=== PATIENT | female | born 1980 | race Caucasian/White ===

== ENCOUNTER → 2024-01-20 12:44 | Outpatient (REF) | payer OTHER, SELFPAY | LOC: WDC 12:44 | PROVIDERS: ATTENDING PHYSICIAN Obstetrics & Gynecology Gynecology | DX: Z12.31 Encounter for screening mammogram for malignant neoplasm of breast (principal) | CPT/HCPCS: 77063; 77067 ==

== ENCOUNTER → 2024-01-24 07:35 | Outpatient (REF) | payer OTHER, SELFPAY | LOC: EMG 07:35 | PROVIDERS: ATTENDING PHYSICIAN Psychiatry & Neurology Neurology; FAMILY PHYSICIAN Family Medicine | DX: M54.12 Radiculopathy, cervical region (principal); R20.0 Anesthesia of skin | CPT/HCPCS: 95886; 95909 ==

== ENCOUNTER 2024-03-16 13:01 | Emergency (ER) | payer OTHER, SELFPAY ==
[2024-03-16 13:09] VITALS: BP 154/90
[2024-03-16 13:45] VITALS: BMI 25.7
--- NOTE | 2024-03-16 15:35 | ED.GENMED ---
History of Present Illness
General
Chief Complaint: Head Injury
Source: patient
Exam Limitations: none
Time Seen by Provider: 03/16/24 13:59
Nursing documentation reviewed up to this point in time: agreed with
Travel History
Have you had any contact with someone who has COVID-19?: No
Do you have any symptoms of coronavirus? Fever > 100 degrees, chills, cough, shortness of breath, sore throat, loss of taste or smell, muscle aches, or headache?: No
History of Present Illness
History of Present Illness:
pt is a 43 y/o F with h/o chronic migraines
here with headache and neck soreness after falling off horse 2 days ago onto her side, while wearing helmet. she landed on left shoulder and did strike back ofher head
no loc
has had headache, photophobia, dizziness, brain fog, fatigue since
she has chronic migraines so the headaches are not new but her other symptoms are
she has no weakness/numbness in the extremiteis
she has not taken anything for her headache, but is not concerned about the headache
wants to know if she can ride her horse again
no thinners
Past History
Past History
ED Past Medical History: GERD, Hypercholesterolemia, Psychiatric (Anxiety) and Other (Migraine headache)
ED Past Surgical History: Cholecystectomy (November 2021), (X2) and Tonsilectomy
Social History
Tobacco: Former smoker
Alcohol: Occasional (Hard Cider 2-5 glasses)
Personal:
Living: with family
Employment: Not employed
Family History
Family History: Other (Noncontributory)
Review of Systems
Review of Systems
Allergies reviewed?: Yes
All Other Systems: Not applicable
Phy Exam
Physical Exam
Physical Exam:
GENERAL: Alert , in no apparent distress
HEAD: NCAT
NECK: no midline tenderness, active ROM intact, mild b/l paraspinal muscle tenderness
EYE: pupils equal and reactive, EOMs intact.
ENT: o/p clr, mmm. no hemotympanum
CARDIAC: Regular rate and rhythm, no edema
LUNGS: Clear breath sounds bilaterally, no acute respiratory distress, no wheezes/rales/rhonchi
ABDOMEN: Soft, without focal tenderness, no r/g, no cvat
NEUROLOGICAL: Alert and oriented, no focal neuro deficits, CN intact, 5/5 strength, sensation intact, finger to nose intact
SKIN: Warm and dry,
MUSCULOSKELETAL: No edema, well perfused.
PSYCH: Normal and appropriate interaction.
Course
Orders/Labs/Results
Orders:
Orders
03/16/24 14:13
CT Cervical Spine W/o Iv Contr Urgent
Comment:
Reason For Exam: neck pain after falling off horse
CT Head W/o Iv Contrast Urgent
Comment:
Reason For Exam: fall, intoxictaed
Vital Signs
Initial and Last Documented VS:
Initial Vital Signs
Temp Pulse Resp BP Pulse Ox
99.0 F 73 16 154/90 99
03/16/24 13:09 03/16/24 13:09 03/16/24 13:09 03/16/24 13:09 03/16/24 13:09
Last Documented Vital Signs
Temp Pulse Resp BP Pulse Ox
99.0 F 63 16 128/83 98
03/16/24 13:09 03/16/24 15:54 03/16/24 13:09 03/16/24 15:54 03/16/24 15:54
MDM/Problems Addressed
Differential Diagnosis Includes:
concussion, cervical strain
MDM/Problems Addressed:
43 y/o F with h/o chornic migraines
here with headache, and lgihtheadedness, photophobia, nausea, fatigue, brain fog following falling off a horse 2 days ago
no thinners
neuro itnact
c spine mild vinny with rotation but no midline tendneres
head/neck ct neg
d/c home brain rest
*Critical Care Note
Total Time (30-74mins, 75-104mins- exclusive of procedures): Not Applicable
ED Attending Note
-
Portions of this chart may have been created with voice recognition software.� Occasional wrong word or��sound alike� substitutions may have occurred due to the inherent limitations of voice recognition software.
Discharge Plan
Departure
Patient Disposition: Home (Routine Discharge)
Date of Disposition: 03/16/24
Time of Disposition: 15:45
Patient with high blood pressure during this ER visit?: Yes
Discharge Problem:
Concussion, Cervical muscle strain
Instructions: Concussion, Adult (DC), BLOOD PRESSURE
Prescriptions:
No Action
sertraline 50 MG tablet
25 mg PO DAILY
Vyvanse 40 mg Capsule
40 mg PO DAILY
omeprazole 20 mg Tablet,Delayed Release (Dr/Ec)
20 mg PO DAILY
Probiotic 3 billion cell Tablet,Chewable
1 tab
Referrals:
Prabhu Suarez MD [Family Provider] - Follow up in 2-3 days
Activity Restrictions/Additional Instructions:
You likely have a mild concussion
for this we recommend 24-48 hours of brain rest to help your brain heal and your headache improve. (no phone, tv, computer reading, etc)
also use tylenol every 6 hours, motrin every 8 hours as needed for pain.
for your neck, heat off and on as needed.
after 24-48 hours, you can return to normal activity
you should avoid sports and riding until cleared/symptom free, follow up with your doctor
return to the er for: worsening pain, vomiting, confusion, weakness, numbness/tingling in arms or legs or any concerns.
Interventions
Interventions:
*Risk Screen - Suicide Last Done: 03/16/24 13:44
*General Assessment Last Done: 03/16/24 13:45
*Neglect/Abuse Screening Last Done: 03/16/24 13:44
ED- Fall Risk Assessment Last Done: 03/16/24 13:44
*ED COVID-19 Vaccine History Last Done: 03/16/24 13:09
*Nursing Disposition Last Done: 03/16/24 16:13
ED- Neurological Assessment Last Done: 03/16/24 13:46
ED-Skin Assessment Last Done: 03/16/24 13:47
Discharge Date and Time
Discharge Date/Time: 03/16/24 16:15
Print Language: SWEDISH
[2024-03-16 15:54] VITALS: BP 128/83
== END 2024-03-16 16:15 | disposition home or self-care (01) ==
LOC: EMR 13:01
PROVIDERS: EMERGENCY PHYSICIAN Emergency Medicine; FAMILY PHYSICIAN Family Medicine
DX: S06.0XAA Concussion with loss of consciousness status unknown, initial encounter (principal); S16.1XXA Strain of muscle, fascia and tendon at neck level, initial encounter; V80.010A Animal-rider injured by fall from or being thrown from horse in noncollision accident, initial encounter; Y93.52 Activity, horseback riding; K21.9 Gastro-esophageal reflux disease without esophagitis; E78.00 Pure hypercholesterolemia, unspecified; F41.9 Anxiety disorder, unspecified; Z87.891 Personal history of nicotine dependence; Z90.49 Acquired absence of other specified parts of digestive tract
CPT/HCPCS: 99284; 70450; 72125

== ENCOUNTER → 2024-11-23 08:43 | Outpatient (REF) | payer OTHER, SELFPAY | LOC: RAD 08:43 | PROVIDERS: ATTENDING PHYSICIAN Psychiatry & Neurology Neurology | DX: M54.16 Radiculopathy, lumbar region (principal); N20.0 Calculus of kidney | CPT/HCPCS: 73502; 74018 ==

== ENCOUNTER → 2025-01-25 08:02 | Outpatient (REF) | payer OTHER, SELFPAY | LOC: WDC 08:02 | PROVIDERS: ATTENDING PHYSICIAN Obstetrics & Gynecology Gynecology; FAMILY PHYSICIAN Family Medicine | DX: Z12.31 Encounter for screening mammogram for malignant neoplasm of breast (principal) | CPT/HCPCS: 77063; 77067 ==

== ENCOUNTER 2025-01-29 06:22 | Day surgery (SDC) | payer OTHER, SELFPAY | END 2025-01-29 15:47 | disposition home or self-care (01) | LOC: GI 06:22 | PROVIDERS: ATTENDING PHYSICIAN Internal Medicine Gastroenterology; FAMILY PHYSICIAN Family Medicine | DX: Z12.11 Encounter for screening for malignant neoplasm of colon (principal); K64.0 First degree hemorrhoids | CPT/HCPCS: G0121 ==

== ENCOUNTER → 2025-03-29 09:50 | Outpatient (REF) | payer OTHER, SELFPAY | LOC: HWRAD 09:50 | PROVIDERS: ATTENDING PHYSICIAN Obstetrics & Gynecology Gynecology; FAMILY PHYSICIAN Family Medicine | DX: N92.0 Excessive and frequent menstruation with regular cycle (principal) | CPT/HCPCS: 76830; 76856 ==

== ENCOUNTER → 2025-07-02 11:09 | Outpatient (REF) | payer OTHER, SELFPAY ==
[2025-07-02 11:53] LABS: Hematocrit 30.8 % (37.0-47.0); Hemoglobin 9.1 g/dL (12.0-16.0); Mean Corp Hgb Conc. 29.5 g/dL (33.0-37.0); Mean Corpuscular Volume 72.3 fL (81.0-99.0); Nucleated Red Blood Cells % 0 %; Platelet Count 296 10^3/uL (130-400); Red Cell Dist. Width 21.7 % (11.5-14.5)
== END ==
LOC: OIDL 11:09
PROVIDERS: ATTENDING PHYSICIAN Nurse Practitioner Primary Care
DX: D50.9 Iron deficiency anemia, unspecified (principal); D50.0 Iron deficiency anemia secondary to blood loss (chronic)
CPT/HCPCS: 85025

== ENCOUNTER → 2025-07-12 13:41 | Outpatient (REF) | payer OTHER, SELFPAY ==
[2025-07-12 11:49] LABS: Hematocrit 34.0 % (37.0-47.0); Hemoglobin 10.3 g/dL (12.0-16.0); Mean Corp Hgb Conc. 30.3 g/dL (33.0-37.0); Mean Corpuscular Volume 74.4 fL (81.0-99.0); Platelet Count 402 10^3/uL (130-400); Red Cell Dist. Width 23.0 % (11.5-14.5)
== END ==
LOC: OIDL 13:41
PROVIDERS: ATTENDING PHYSICIAN Nurse Practitioner Primary Care
DX: D50.9 Iron deficiency anemia, unspecified (principal); D50.0 Iron deficiency anemia secondary to blood loss (chronic)
CPT/HCPCS: 85025

== ENCOUNTER 2025-08-01 11:35 | Emergency (ER) | payer OTHER, SELFPAY ==
[2025-08-01] VITALS (7 sets, daily range): BP systolic 105–141; BP diastolic 64–91; BMI 26.8
[2025-08-01 12:12] LABS: Hematocrit 34.2 % (37.0-47.0); Hemoglobin 11.0 g/dL (12.0-16.0); Mean Corp Hgb Conc. 32.2 g/dL (33.0-37.0); Mean Corpuscular Volume 78.3 fL (81.0-99.0); Nucleated Red Blood Cells % 0 %; Platelet Count 276 10^3/uL (130-400); Red Cell Dist. Width 22.5 % (11.5-14.5)
[2025-08-01 12:23] LABS: Urine Character Clear (Clear)
[2025-08-01 12:36] LABS: HCG, Serum Qualitative Screen Negative
[2025-08-01 12:39] LABS: ALT (SGPT) 13 U/L (0-35); AST (SGOT) 19 U/L (14-36); Albumin 4.7 g/dl (3.5-5.0); Alkaline Phosphatase 32 U/L (38-126); Blood Urea Nitrogen 15 mg/dl (7-17); Calcium 9.6 mg/dl (8.4-10.2); Carbon Dioxide 26 mmol/L (22-30); Chloride 104 mmol/L (98-107); Glucose 102 mg/dl (70-99); Lipase 179 U/L (23-300); Potassium 4.0 mmol/L (3.5-5.1); Sodium 138 mmol/L (135-145); Total Protein 7.1 g/dl (6.3-8.2); eGFR > 60.00
[2025-08-01] MEDS: TORADOL 15 MG IV (14:06)
--- NOTE | 2025-08-01 14:08 | ED.GENMED ---
History of Present Illness
General
Chief Complaint: Abdominal Pain
Time Seen by Provider: 08/01/25 13:48
History of Present Illness
History of Present Illness:
44-year-old female with history of iron deficiency anemia presenting for lower abdominal pain. Patient reports symptoms for the past 4 days. Notes initially that she was having diarrhea, has since resolved. Notes nausea without vomiting. Notes
surgical history of cholecystectomy. Denies urinary complaints. Denies chest pain or difficulty breathing. Denies any fever. She went to see her doctor today, was recommended to come to the hospital. At onset of symptoms, denies any abnormal
food. Denies additional acute medical complaints
Past History
Past History
ED Past Medical History: GERD, Hypercholesterolemia, Psychiatric (Anxiety) and Other (Migraine headache)
ED Past Surgical History: Cholecystectomy (November 2021), (X2) and Tonsilectomy
Social History
Tobacco: Former smoker
Alcohol: Occasional (Hard Cider 2-5 glasses)
Personal:
Living: with family
Employment: Not employed
Family History
Family History: Other (Noncontributory)
Phy Exam
Physical Exam
Physical Exam:
General: Well-appearing, no clinical signs of dehydration, nontoxic and in no acute distress
HEENT: protecting airway
Neck: appears supple
CV: Normal heart rate, regular rhythm, no evidence of cyanosis
Resp: No accessory muscle use, no increased work of breathing
Abd: Soft and non-distended, diffuse tenderness on lower abdomen without rebound or guarding
Extremities: No deformities, no swelling
Neuro: alert, no focal neurologic deficit
: deferred
Rectal: deferred
Psych: Normal affect
Skin: Intact
Course
Orders/Labs/Results
Orders:
Orders
08/01/25 11:43
Test Result ONCE
08/01/25 11:52
Complete Blood Count/With Diff Urgent
Comprehensive Metabolic Panel Urgent
HCG, Serum Qualitative Screen Urgent
Comment: Notify provider if positive test present
Lipase Urgent
Urinalysis Reflex To Culture Urgent
Date Specimen was Collected: 08/01/25
Time Specimen was Collected: 11:44
08/01/25 14:03
CT Abd/pelvis W Iv Cont Urgent
Comment:
Reason For Exam: lower abd pain, cramping
Ketorolac [Toradol] 15 mg IV NOW STA
08/01/25 17:02
US Pelvis W Transvag Combined Urgent
Comment:
Reason For Exam: lower abd pain, abnormal CT, R-cyst
08/01/25 17:03
Morphine Sulfate 2 mg IV NOW STA
08/01/25 19:32
Amoxicillin 875 mg/Clav 125 mg [Augmentin 875 mg/125 mg] 1 tablet PO NOW STA
Abnormal Lab Results
08/01/25
11:52
Hgb 11.0 L g/dL
(12.0-16.0)
Hct 34.2 L %
(37.0-47.0)
MCV 78.3 L fL
(81.0-99.0)
MCH 25.2 L pg
(27.0-31.0)
MCHC 32.2 L g/dL
(33.0-37.0)
RDW 22.5 H %
(11.5-14.5)
Absolute Neuts (auto) 7.1 H 10^3/uL
(1.4-6.5)
Absolute Monos (auto) 0.8 H 10^3/uL
(0.1-0.6)
Lymphocytes % 17.3 L %
(20.5-51.1)
Glucose 102 H mg/dl
(70-99)
Alkaline Phosphatase 32 L U/L
(38-126)
08/01/25 11:52
08/01/25 11:52
Vital Signs
Initial and Last Documented VS:
Initial Vital Signs
Temp Pulse Resp BP Pulse Ox
98.5 F 89 16 141/91 99
08/01/25 11:40 08/01/25 11:40 08/01/25 11:40 08/01/25 11:40 08/01/25 11:40
Last Documented Vital Signs
Temp Pulse Resp BP Pulse Ox
98.5 F 70 18 112/76 94
08/01/25 11:40 08/01/25 15:33 08/01/25 15:33 08/01/25 19:00 08/01/25 19:15
MDM/Problems Addressed
MDM/Problems Addressed:
44-year-old female presenting for 4 days of lower abdominal cramping and pain. Vital signs normal.
On exam patient is resting comfortably, no acute distress. Unremarkable cardiac and pulmonary exam. Patient afebrile, nontoxic. Abdomen is soft and nondistended, however with generalized tenderness to the lower abdomen without rebound or
guarding. Ultimately suspect enteritis. However given reproducible tenderness, will obtain CT imaging for further assessment. Labs obtained prior to exam, relatively unremarkable. No leukocytosis, or additional acute concerning findings
17:00 -CT shows possible mild diverticulitis, also mention of right ovarian cyst with some fluid, recommending dedicated ultrasound. For this reason we will obtain pelvic ultrasound to ensure normal blood flow to bilateral ovaries
19:30 -ultrasound shows possible mass to the right ovary, favored to represent a hemorrhagic cyst versus endometrioma, recommending interval follow-up in 6 weeks. Copy provided to patient to give to her chief minister. Ultimately suspect GI quality
of symptoms. CT does show possible diverticulitis. Patient notes strong family history of diverticulitis. Will treat as such with Augmentin. Otherwise feel stable for discharge with continued outpatient Tylenol or Motrin as needed for pain.
Return precautions discussed and patient verbalized understanding
*Pulse Oximetry
SaO2: 99
Oxygen Mode of Delivery: Room air
Patient hypoxic: no
*Critical Care Note
Total Time (30-74mins, 75-104mins- exclusive of procedures): Not Applicable
ED Attending Note
-
Portions of this chart may have been created with voice recognition software.� Occasional wrong word or��sound alike� substitutions may have occurred due to the inherent limitations of voice recognition software.
Discharge Plan
Departure
Prescriptions:
No Action
sertraline 50 MG tablet
25 mg PO DAILY
Vyvanse 40 mg Capsule
40 mg PO DAILY
omeprazole 20 mg Tablet,Delayed Release (Dr/Ec)
20 mg PO DAILY
Probiotic 3 billion cell Tablet,Chewable
1 tab
Referrals:
Alina Kaiser MD [Family Provider, Family Practice]
Interventions
Interventions:
*Risk Screen - Suicide Last Done: 08/01/25 15:35
*General Assessment Last Done: 08/01/25 15:35
*Neglect/Abuse Screening Last Done: 08/01/25 11:40
*ED- Fall Risk Assessment Last Done: 08/01/25 11:40
*ED COVID-19 Vaccine History Last Done: 08/01/25 14:22
GV-Eitogw-Oforbsgtve Assessment Last Done: 08/01/25 15:45
Discharge Date and Time
Print Language: BULGARIAN
[2025-08-01] MEDS: MORPHINE SULFATE 2 MG IV (17:09)
[2025-08-01] MEDS: AUGMENTIN 875 MG/125 MG 1 TABLET PO (19:49)
== END 2025-08-01 21:10 | disposition home or self-care (01) ==
LOC: EMR 11:35
PROVIDERS: EMERGENCY PHYSICIAN Student in an Organized Health Care Education/Training Program; FAMILY PHYSICIAN Family Medicine
DX: K57.32 Diverticulitis of large intestine without perforation or abscess without bleeding (principal); N83.11 Corpus luteum cyst of right ovary; E78.00 Pure hypercholesterolemia, unspecified; K21.9 Gastro-esophageal reflux disease without esophagitis; F41.9 Anxiety disorder, unspecified; Z87.891 Personal history of nicotine dependence
CPT/HCPCS: 99284; 96374; 96375; 74177; 76830; 76856; 80053; 81003; 83690; 84703; 85025; Q9967